=== PATIENT | male | born 1965 | race Caucasian/White ===

== ENCOUNTER 2020-01-30 21:28 | Emergency (ER) | payer OTHER, SELFPAY ==
[2020-01-30 21:29] VITALS: BP 148/76; PULSE 66; RESP 15; TEMP 36.6; O2SAT 98; BMI 27.5
--- NOTE | 2020-01-30 21:44 | ED.DCSUM_ITS ---
- ER Visit Summary Date of Service: 01/30/20 Chief Complaint: Drill bit puncture wound left palm History of Present Illness: The patient is a 54 M male history of diabetes, hypertension, high cholesterol and depression. Patient is right-hand dominant. He was using a drill bit drilling wood. When it slipped and caused a puncture wound to the palmar aspect of his left hand just proximal to the fourth and fifth digits. No other injuries. No numbness. Normal range of motion. This occurred within the last half an hour. He has previously had surgery on his left thumb due to a cat bite infection. Physical Examination: Well-appearing middle-aged male. Vital signs are stable afebrile. No distress. Lungs are clear. Heart regular rhythm. Abdomen soft nontender. Moving all 4 extremities neurovascular intact. Left hand palmar aspect just proximal to the ring and small finger there is a drillbit puncture wound. There is no significant swelling. There is no excessive bleeding. There is no pus or foreign body. No redness or signs of infection. There is no gross bony deformity. There is only mild tenderness. He has full flexion and extension of all digits of his left hand. He can flex against resistance both the PIP and DIP joints of both the ring and small fingers. He has normal touch sensation on both the radial and ulnar side of the small and ring fingers. Normal cap refill. Neurologically is awake alert with no focal motor or sensory deficits. Test Results: X-ray left hand 3 views read by myself shows no acute abnormality. No fracture. No foreign body. Emergency Department Course and Treatment: Patient has a puncture wound of his left hand. Tetanus will be updated he is unsure when his last tetanus was and believes it may have been greater than 10 years. X-ray to be obtained to rule out bony injury. On exam there is currently no signs of infection or bony deformity. No obvious flexor tendon injury he has normal range of motion. The hand to be thoroughly washed and clean. Dressed. He will be given a dose of Keflex here. Repeat exam patient is doing well at 2230. He will be discharged to home. Treatment Plan: Ice and elevate. Keep clean and covered. Apply antibiotic ointment daily. Clean daily. Keflex 500 mg 4 times a day for 5 days. Watch for any signs of infection is seen return. Disposition: Discharge Impression: Drill bit puncture wound left hand Tetanus updated This note was generated with [employer] dictation software. It may contain incorrect words, spelling, and punctuation that were not noted in review of the chart prior to signing ED Disposition - Plan for ED Patient: Disposition: Home or Assisted Living Instructions: ED Wound Puncture General Prescriptions: Cephalexin [Keflex] 500 mg PO Q6 #20 cap Prescription Printed Referrals: Lori Cornell DO [Primary Care Provider] - As Needed Additional Instructions: Return if any signs of infection such as pus, redness, streaks, fever, in creasing pain or swelling. Clean daily with soap and water or peroxide and water. Apply antibiotic ointment. Keep it covered with a Band-Aid. Ice and elevate to decrease pain and swelling. Tylenol and/or Motrin for pain. Follow-up with your doctor if not improving. Your tetanus shot was updated tonight and your good for the next 10 years.
--- NOTE | 2020-01-30 21:47 | ED.DEP ---
ED Disposition - Plan for ED Patient: Disposition: Home or Assisted Living Instructions: ED Wound Puncture General Prescriptions: Cephalexin [Keflex] 500 mg PO Q6 #20 cap Prescription Printed Referrals: Lori Cornell DO [Primary Care Provider] - As Needed Additional Instructions: Return if any signs of infection such as pus, redness, streaks, fever, increasing pain or swelling. Clean daily with soap and water or peroxide and water. Apply antibiotic ointment. Keep it covered with a Band-Aid. Ice and elevate to decrease pain and swelling. Tylenol and/or Motrin for pain. Follow-up with your doctor if not improving. Your tetanus shot was updated tonight and your good for the next 10 years.
[2020-01-30] MEDS: Diphth,Pertuss(Acell),Tet Vac 0.5 ML Vial IM (21:54)
[2020-01-30] MEDS: Cephalexin 250 MG Capsule 500 MG PO (21:54)
--- NOTE | 2020-01-30 22:15 | RAD_ITS ---
HISTORY: wound to left palm from drill bit ADDITIONAL HISTORY: None provided. TECHNIQUE: Left hand 3 views Number of images including paperwork: 3 COMPARISON: None FINDINGS: BONES: No acute fracture. JOINTS: No subluxation. SOFT TISSUES: No distinct foreign body. RAD/Hand Min 3 Views IMPRESSION: No acute osseous abnormality. at 2226 Reported and signed by: Rose Hicks MD Electronically Signed: Rose Hicks MD at 22:26 EDT Tel , Service support ,
== END 2020-01-30 22:38 | disposition home or self-care (01) ==
LOC: ED 21:54
PROVIDERS: Emergency Provider Emergency Medicine; PCP Internal Medicine
DX: S61.432A Puncture wound without foreign body of left hand, initial encounter (principal); W26.8XXA Contact with other sharp object(s), not elsewhere classified, initial encounter; Y93.89 Activity, other specified; Y92.9 Unspecified place or not applicable; I10 Essential (primary) hypertension; E11.9 Type 2 diabetes mellitus without complications; E78.00 Pure hypercholesterolemia, unspecified; F32.9 Major depressive disorder, single episode, unspecified; Z79.84 Long term (current) use of oral hypoglycemic drugs; Z79.899 Other long term (current) drug therapy
CPT/HCPCS: 73130; 90471; 90715; 99283

== ENCOUNTER → 2023-02-23 | Outpatient (CLI) | payer OTHER, SELFPAY ==
--- NOTE | 2023-02-23 11:00 | CT_ITS ---
STUDY: CT ABDOMEN AND PELVIS WITHOUT CONTRAST REASON FOR EXAM: Male, 57 years old. Right flank pain RADIATION DOSAGE (If Supplied By Facility): CTDIvol = ( 11.95 ) mGy, DLP = ( 606.16 ) mGycm TECHNIQUE: Transaxial images were obtained from the dome of the diaphragm to the symphysis pubis without oral contrast, and without intravenous contrast. Sagittal and coronal images were reconstructed. Individualized dose optimization techniques were used for this CT. COMPARISON: None. FINDINGS: Minimal increased markings at the lung bases suggest underlying atelectasis. Coronary artery calcification. Normal liver. Normal gallbladder and extrahepatic biliary system. Normal spleen. Normal pancreas. Normal bilateral adrenal glands. Normal right kidney. Normal left kidney. There is a small hiatal hernia. Normal small intestine. There are multiple colonic diverticula involving the entire colon, consistent with diverticulosis. The appendix is visualized and appears normal. There is scattered atherosclerotic calcification of the abdominal aorta and its major visceral branches, without a demonstrated aneurysm. Normal inferior vena cava. Normal retroperitoneum. Normal urinary bladder. There is a small umbilical hernia containing fat. Small left inguinal hernia containing fat. This space narrowing and degeneration at the L5-S1. Loss of the normal lumbar lordosis. CT/Abdomen/Pelvis without Cont IMPRESSION: Colonic diverticulosis. Small umbilical hernia containing fat as well as a small left inguinal hernia containing fat. Electronically Signed: Beni Vladez MD at 11:51 EDT ,
== END | disposition home or self-care (01) ==
PROVIDERS: PCP Internal Medicine; Referring Provider Nurse Practitioner Family; Visit Provider Nurse Practitioner Family
DX: K57.30 Diverticulosis of large intestine without perforation or abscess without bleeding (principal); K42.9 Umbilical hernia without obstruction or gangrene; K40.90 Unilateral inguinal hernia, without obstruction or gangrene, not specified as recurrent
CPT/HCPCS: 74176